=== PATIENT | male | born 1980 | race Hispanic/Latino ===

== ENCOUNTER 2019-09-19 16:34 | Emergency (ER) | payer SELFPAY | END 2019-09-19 17:28 | disposition home or self-care (01) | LOC: EDH 16:34 | DX: J01.10 Acute frontal sinusitis, unspecified (principal); I10 Essential (primary) hypertension; Z72.0 Tobacco use ==

== ENCOUNTER 2019-10-11 17:48 | Emergency (ER) | payer SELFPAY ==
[2019-10-11 19:41] LABS: RAPID GROUP A STREP NEGATIVE (NEGATIVE)
== END 2019-10-11 19:59 | disposition home or self-care (01) ==
LOC: EDH 17:48
DX: R19.7 Diarrhea, unspecified (principal); R63.0 Anorexia; R50.9 Fever, unspecified; R09.81 Nasal congestion; Z72.0 Tobacco use
CPT/HCPCS: 87804; 87880

== ENCOUNTER 2019-12-17 12:43 | Emergency (ER) | payer SELFPAY | END 2019-12-17 14:36 | disposition home or self-care (01) | LOC: EDH 12:43 | DX: H00.011 Hordeolum externum right upper eyelid (principal) | CPT/HCPCS: 99281 ==